=== PATIENT | male | born 2000 | race Two or more races ===

== ENCOUNTER 2024-01-04 19:41 | Emergency (ER) | payer MEDICAID, OTHER ==
[~2024-01-04] VITALS: Ht 188 cm; Wt 63.1 kg
[2024-01-04] MEDS: SODIUM CHLORIDE 0.9% 1,000 ML IV ONE (20:25)
[2024-01-04 20:34] LABS: Basophils # (auto) 0 10 ^3/uL (0-0.2); Basophils % (auto) 0.5 % (0.0-2.0); Eosinophils # (auto) 0.1 10 ^3/uL (0-0.8); Eosinophils % (auto) 1.7 % (0.0-7.0); Hematocrit 48.6 % (41.0-53.0); Hemoglobin 16.1 g/dL (13.5-17.5); Lymphocytes # (auto) 2.2 10 ^3/uL (0.4-5.4); Lymphocytes % (auto) 34.6 % (10.0-50.0); Mean Corpuscular Hemoglobin 27.5 pg (28.0-32.0); Mean Corpuscular Volume 83.3 fL (80.0-100.0); Monocytes # (auto) 0.4 10 ^3/uL (0-1.3); Monocytes % (auto) 6.8 % (0.0-12.0); Neutrophils # (auto) 3.6 10 ^3/uL (1.6-8.6); Neutrophils % (auto) 56.4 % (37.0-80.0); Nucleated Red Blood Cells % 0.2 %; Red Blood Cells 5.84 10^6/uL (4.5-5.90); Red Cell Distribution Width 12.9 % (11.8-14.3); White Blood Cell 6.5 10^3/uL (4.4-10.8)
[2024-01-04] MEDS: IOHEXOL 350 MG/ML 100ML IJ ONE (20:35)
[2024-01-04] MEDS: PANTOPRAZOLE 40 MG/10 ML VIAL INJ IV ONE (20:35)
[2024-01-04] MEDS: PROCHLORPERAZINE EDISYLATE 5 MG/ML 2ML VIAL IV ONE (20:35)
[2024-01-04 20:42] LABS: Chloride 106 mmol/L (98-107); Potassium 3.9 mmol/L (3.5-5.1); Sodium 140 mmol/L (136-145)
[2024-01-04 20:43] LABS: Anion Gap 6 (5-15); Calcium 9.9 mg/dL (8.5-10.1); Carbon Dioxide 28 mmol/L (20-30)
[2024-01-04 20:48] LABS: BUN/Creatinine Ratio 9.6 (10.0-20.0); Blood Urea Nitrogen 11 mg/dL (9-23); Glucose 98 mg/dL (74-106)
[2024-01-04] MEDS ORDERED: ZOFR4T PO (21:23)
[2024-01-04] MEDS ORDERED: PANT40TA2 PO (21:23)
[2024-01-04] MEDS: SODIUM CHLORIDE 0.9% 1,000 ML IVB ONE (21:44)
[2024-01-04 21:47] VITALS: BP 139/83; PULSE 68; RESP 18; O2SAT 96
== END 2024-01-04 22:02 | disposition home or self-care (01) ==
LOC: ER 19:41
DX: F12.90 Cannabis use, unspecified, uncomplicated (principal); R10.84 Generalized abdominal pain; R11.0 Nausea; R19.7 Diarrhea, unspecified; Z87.891 Personal history of nicotine dependence; Z79.899 Other long term (current) drug therapy
CPT/HCPCS: 36415; 74177; 80048; 85025; 96361; 96374; 96375; 99285; J0780; J7030; Q9967

== ENCOUNTER 2024-02-03 11:48 | Emergency (ER) | payer MEDICAID ==
[~2024-02-03] VITALS: Ht 188 cm; Wt 65.7 kg
[~2024-02-03 11:48] MED LIST: PANT40TA2 PO; ZOFR4T PO
[2024-02-03 13:38] VITALS: BP 132/71; PULSE 64; RESP 18; TEMP 97.4; O2SAT 100
== END 2024-02-03 15:34 | disposition home or self-care (01) ==
LOC: ER 11:48
DX: M79.632 Pain in left forearm (principal); F17.290 Nicotine dependence, other tobacco product, uncomplicated; F12.10 Cannabis abuse, uncomplicated
CPT/HCPCS: 93971